=== PATIENT | male | born 1945 | race Two or more races ===

== ENCOUNTER 2017-08-30 12:51 | Emergency (ER) | payer OTHER ==
[~2017-08-30] VITALS: Ht 170.2 cm; Wt 77.1 kg
[2017-08-30] MEDS ORDERED: KETO10TA2 PO (18:46)
[2017-08-30] MEDS ORDERED: ORPHENADRINE C100 MG PO (18:46)
== END 2017-08-30 20:27 | disposition home or self-care (01) ==
LOC: ER 12:51
DX: S00.83XA Contusion of other part of head, initial encounter (principal); S30.1XXA Contusion of abdominal wall, initial encounter; W01.198A Fall on same level from slipping, tripping and stumbling with subsequent striking against other object, initial encounter; Y93.01 Activity, walking, marching and hiking; Y92.098 Other place in other non-institutional residence as the place of occurrence of the external cause; Y99.8 Other external cause status

== ENCOUNTER 2020-04-01 13:22 | Emergency (ER) | payer OTHER ==
[~2020-04-01] VITALS: Ht 170.2 cm; Wt 72.6 kg
[~2020-04-01 13:22] MED LIST: KETO10TA2 PO; ORPHENADRINE C100 MG PO
[2020-04-01] MEDS ORDERED: METFORMIN HCL500 M4 PO (13:39)
== END 2020-04-01 14:23 | disposition home or self-care (01) ==
LOC: ER 13:22
DX: G51.0 Bell's palsy (principal); I10 Essential (primary) hypertension

== ENCOUNTER 2022-07-13 07:29 | Emergency (ER) | payer OTHER ==
[~2022-07-13] VITALS: Ht 170.2 cm; Wt 77.1 kg
[~2022-07-13 07:29] MED LIST changes: +METFORMIN HCL500 M4 PO
[2022-07-13] MEDS ORDERED: SIMVASTATIN20 MG PO (08:06)
[2022-07-13] MEDS ORDERED: KETO10TA2 PO (11:54)
[2022-07-13] MEDS ORDERED: AMOX1TAB5 PO (11:54)
== END 2022-07-13 14:02 | disposition home or self-care (01) ==
LOC: ER 07:29
DX: M70.11 Bursitis, right hand (principal)